=== PATIENT | male | born 1980 | race Caucasian/White ===

== ENCOUNTER 2021-10-16 11:38 | Emergency (ER) | payer OTHER, SELFPAY ==
[2021-10-16 12:16] VITALS: BP 168/102; PULSE 73; RESP 18; TEMP 36.8; O2SAT 99; BMI 28.9
--- NOTE | 2021-10-16 12:26 | ED_ITS ---
HPI - Male Genitourinary General Chief complaint: Urogenital-Male Stated complaint: Possible STD Time Seen by Provider: 10/16/21 12:13 Source: patient Mode of arrival: Ambulatory Limitations: no limitations History of Present Illness HPI Narrative: Otherwise healthy 41-year-old gentleman who presents with a week of increasing mild dysuria last night noticed increasing penile discharge and his most recent partner tested positive for chlamydia. He comes in for STD testing. He has complaining of mild lymphadenopathy inguinal a on the right side. He notes no vesicles, blisters, papules or other changes to his genitals. He notes that he had herpes outbreak about 6 months ago and has never had similar symptoms or infection. He reports that he was using condoms with the partner with whom the herpes became an issue. He and his current partner were not using condoms quite is consistently. He reports no fevers, abdominal pain, flank pain, palpitations, shortness of breath, headaches. Related Data Home Medications Medication Instructions Recorded Confirmed Fiber Gummies 6 g PO DAILY 04/07/18 04/25/18 magnesium 400 mg PO DAILY 04/07/18 04/25/18 Previous Rx's Medication Instructions Recorded doxycycline monohydrate 100 mg 100 mg PO BID #14 tab 10/16/21 tablet Allergies Allergy/AdvReac Type Severity Reaction Status Date / Time No Known Drug Allergies Allergy Verified 04/25/18 16:12 Review of Systems Review of Systems Narrative: Remainder of complete review of systems is otherwise unremarkable except for that included in the HPI. Patient History Social History household members: significant other Smoking Status: Never smoker Smoking Status: Never smoker alcohol intake frequency: 0-2 drinks per day Substance Use Type: does not use Exam Narrative Exam Narrative: General: Alert appropriate in no acute distress Respiratory: Able to speak in full sentences, no obvious respiratory distress Abdomen: No abdominal tenderness. Minor right inguinal adenopathy. No genital abnormalities Skin: No obvious rashes, warm and dry Neurologic: Grossly intact no obvious asymmetries or abnormalities Psych: appropriate insight and affect, cooperative Initial Vital Signs Initial Vital Signs: Vital Signs Temperature 98.3 F 10/16/21 12:16 Pulse Rate 73 10/16/21 12:16 Respiratory Rate 18 10/16/21 12:16 Blood Pressure 168/102 H 10/16/21 12:16 Pulse Oximetry 99 10/16/21 12:16 Course Orders Ordered: ED Orders 10/16/21 12:03 Chlamydia Gonorrhea PCR -URINE Stat Vital Signs Vital signs: Vital Signs - 8 hr 10/16/21 12:16 Temperature 98.3 F Pulse Rate 73 Respiratory Rate 18 Blood Pressure 168/102 H Pulse Oximetry 99 MDM - Male Genitourinary MDM Narrative Medical decision making narrative: 41-year-old gentleman with dysuria for a week, penile discharge for 12-24 hours and a partner with a positive chlamydia test. Urine is sent for gonorrhea and chlamydia testing. He is empirically treated with doxycycline 100 mg b.i.d. for 7 days. Will contact him if his chlamydia test returns positive. He declines additional testing at this time. Discharge Plan Departure Patient Disposition: Home Clinical Impression: Chlamydia infection Instructions: Chlamydia Activity Restrictions/Additional Instructions: Thank you for coming in today With your partner testing positive, we will empirically treat you for chlamydia with doxycycline 100 mg twice a day for 7 days. Your urine has been sent for both gonorrhea and chlamydia testing. If the gonorrhea returns positive as well we will contact you. I have given you a prescription for the antibiotic. [facility] is open today until 3:00 p.m.. I am not sure of the other pharmacies during the holiday. You have any worsening symptoms or new abnormalities please feel free to return to the ER. Prescriptions: New doxycycline monohydrate 100 mg tablet 100 mg PO BID Qty: 14 0RF No Action Fiber Gummies 6 g PO DAILY 0RF magnesium 400 mg PO DAILY 0RF Referrals: Jude Laguerre MD [Primary Care Provider] -
[2021-10-16 13:49] LABS: Urine N gonorrhoeae DETECTED
[2021-10-16 13:57] LABS: Urine Chlamydia NOT DETECTED
== END 2021-10-16 12:48 | disposition home or self-care (01) ==
PROVIDERS: Emergency Provider Emergency Medicine; PCP Family Medicine
DX: A56.2 Chlamydial infection of genitourinary tract, unspecified (principal)
CPT/HCPCS: 87491; 87591; 99281; 99283

== ENCOUNTER 2023-10-19 09:55 | Emergency (ER) | payer OTHER, SELFPAY ==
[2023-10-19] VITALS (8 sets, daily range): BP systolic 148–170; BP diastolic 95–108; PULSE 87–103; RESP 15–22; TEMP 36.6; O2SAT 97–98; BMI 29.5
--- NOTE | 2023-10-19 10:03 | DI.RAD.S_ITS ---
PROCEDURE: XR CHEST 1V INDICATIONS: chest pain TECHNIQUE: One view of the chest was acquired. COMPARISON: None. FINDINGS: Surgical changes and devices: None. Lungs and pleura: Lungs are clear. No pleural effusions or pneumothorax. Mediastinum: Mediastinal contours appear normal. Heart size is normal. Bones and chest wall: No suspicious bony lesions. Overlying soft tissues appear unremarkable. IMPRESSION: No acute cardiopulmonary abnormality is seen. Dictated by: Alcon Morgan M.D. on 10/19/2023 at 9:17 Approved by: Alcon Morgan M.D. on 10/19/2023 at 9:19
[2023-10-19] MEDS: ASPIRIN 81 MG CHEW TAB 324 MG PO (10:06)
[2023-10-19 10:09] LABS: Add Manual Diff / Slide Review NO; Basophils Absolute Auto 100 /uL (0-100); Basophils Percent Auto 0.5 % (0-2); Eosinophils Absolute Auto 100 /uL (0-450); Eosinophils Percent Auto 0.9 % (2-4); Hematocrit 42.6 % (41-53); Hemoglobin 14.1 g/dL (13.5-17.5); Lymphocytes Absolute Auto 1900 /uL (1100-4500); Lymphocytes Percent Auto 11.9 % (25-40); Mean Corpuscular HGB Conc 33.1 % (30-36); Mean Corpuscular Hemoglobin 29.5 PG (26-34); Monocytes Absolute Auto 1900 /uL (0-900); Monocytes Percent Auto 11.9 % (3-14); Neutrophils Absolute Auto 11800 /uL (1500-7000); Neutrophils Percent Auto 74.8 % (50-75); Platelet Count 334 X10^3/uL (150-400); Red Blood Cell Count 4.79 X10^6/uL (4.5-5.9); White Blood Cell Count 15.8 X10^3/uL (4.5-11.0)
[2023-10-19 10:21] LABS: Alanine Aminotransferase 36 IU/L (<50); Albumin 4.7 g/dL (3.5-5.0); Alkaline Phosphatase 109 U/L (38-126); Aspartate Aminotransferase 31 IU/L (17-59); BUN Creatinine Ratio 13.3 (6-22); Bilirubin Total 0.8 mg/dL (0.2-1.3); Blood Urea Nitrogen 13 mg/dL (9-20); Calcium 10.4 mg/dL (8.4-10.2); Carbon Dioxide 29 mmol/L (22-32); Chloride 101 mmol/L (98-107); Creatine Kinase 37 U/L (55-170); Estimated Glomerular Filt Rate > 60 mL/min (>60); Globulin 4.5 g/dL (1.7-4.1); Glucose 113 mg/dL (70-100); HEMOLYSIS < 15 (0-50); Lipase 50 U/L (23-300); Potassium 4.6 mmol/L (3.4-5.1); Sodium 138 mmol/L (137-145); Total Protein 9.2 g/dL (6.3-8.2)
--- NOTE | 2023-10-19 10:21 | ED.CHESTPAIN ---
HPI - Chest Pain General Chief Complaint: Chest Pain Stated Complaint: chest pain, difficulty breathing Time Seen by Provider: 10/19/23 09:59 Source: patient Mode of arrival: Ambulatory Limitations: no limitations History of Present Illness HPI narrative: 43-year-old male presents for 3 days of central burning substernal chest pain into his back, worse when lying down. Pain began after eating meals and nothing seems to make it better. He states the only way he can feel comfortable enough to sleep is to sleep upright. Took aspirin and ibuprofen yesterday without significant change in pain. Denies family history of heart disease. States only medical history is anxiety. Related Data Home Medications Medication Instructions Recorded Confirmed Fiber Gummies 6 g PO DAILY fiber 04/07/18 04/25/18 magnesium 400 mg PO DAILY muscle care 04/07/18 04/25/18 Previous Rx's Medication Instructions Recorded doxycycline monohydrate 100 mg 100 mg PO BID #14 tabs 10/16/21 tablet Allergies Allergy/AdvReac Type Severity Reaction Status Date / Time No Known Drug Allergies Allergy Verified 10/19/23 10:03 Review of Systems Review of Systems Narrative: Negative except as noted above Patient History Social History household members: significant other Smoking Status: Never smoker Smoking Status: Never smoker alcohol intake frequency: 3 or more drinks per day Substance Use Type: does not use Exam Initial Vital Signs Initial Vital Signs: Vital Signs Temperature 97.9 F 10/19/23 09:56 Pulse Rate 103 H 10/19/23 09:56 Respiratory Rate 15 10/19/23 09:56 Blood Pressure 169/108 H 10/19/23 09:56 Pulse Oximetry 98 10/19/23 09:56 Oxygen Delivery Method Room Air 10/19/23 09:56 Const: Awake, alert, anxious Eyes: PERRL, EOMI, conjunctiva normal ENT: Atraumatic, dentition normal, mucous membranes moist Cardiac: regular rate, regular rhythm RESP: unlabored, clear bilaterally, no wheezing GI: Atraumatic, soft, nontender, nondistended, no rebound, no guarding MSK: Atraumatic, full range of motion, pulses equal Skin: Warm, Dry, intact, no rashes Neuro: AO x3, CN II-XII grossly intact, moves all extremities Psych: Anxious affect, mood normal, not suicidal, not homicidal Course Orders Ordered: ED Orders 10/19/23 10:00 Complete Blood Count AUTO DIFF Stat Comprehensive Metabolic Panel Stat D Dimer Stat Lipase Stat Magnesium Stat PTT Partial Thromboplastin Abdoulaye Stat Prothrombin Time INR Stat Troponin & CK Cardiac Panel Stat 10/19/23 10:03 XR chest 1V Stat EKG-12 Lead Stat 10/19/23 10:30 Urine Drug Screen, Rapid Stat 10/19/23 10:47 CT angio chest PE protocol Stat Discontinued Medications Al Hydrox/Mg Hydrox/Simethicone (Mag Hydrox/Alum/Simeth 30 Ml Udc) 30 ml PO NOW ONE Stop: 10/19/23 10:32 Last Admin: 10/19/23 10:40 Dose: 30 ml Documented By: MARYLU Aspirin (Aspirin 81 Mg Chew Tab) 324 mg PO NOW ONE Stop: 10/19/23 10:03 Last Admin: 10/19/23 10:06 Dose: 324 mg Documented By: MARYLU Ketorolac Tromethamine (Ketorolac 30 Mg/Ml Vial) 15 mg IV NOW ONE Stop: 10/19/23 11:52 Last Admin: 10/19/23 11:56 Dose: 15 mg Documented By: MARYLU Lidocaine HCl (Lidocaine Viscous 2% 15 Ml Solution) 15 ml PO NOW ONE Stop: 10/19/23 10:32 Last Admin: 10/19/23 10:40 Dose: 15 ml Documented By: MARYLU Vital Signs Vital signs: Vital Signs - 8 hr 10/19/23 09:56 10/19/23 10:07 10/19/23 10:30 Temperature 97.9 F Pulse Rate 103 H 103 H 103 H Respiratory Rate 15 22 22 Blood Pressure 169/108 H Pulse Oximetry 98 98 98 Oxygen Delivery Method Room Air 10/19/23 10:30 10/19/23 11:00 10/19/23 11:01 Temperature Pulse Rate Respiratory Rate Blood Pressure 170/106 H 159/95 H Pulse Oximetry 98 Oxygen Delivery Method 10/19/23 11:01 10/19/23 11:29 10/19/23 11:30 Temperature Pulse Rate 87 91 H Respiratory Rate Blood Pressure 148/96 H Pulse Oximetry 97 98 Oxygen Delivery Method 10/19/23 11:30 10/19/23 12:00 10/19/23 12:00 Temperature Pulse Rate 91 H 89 Respiratory Rate Blood Pressure 152/96 H Pulse Oximetry 97 98 Oxygen Delivery Method MDM - Chest Pain Differential Diagnosis Differential diagnosis: Likely atypical chest pain, costochondritis and chest pain Lab Data 10/19/23 10:00 10/19/23 10:00 Labs: Lab Results 10/19/23 10/19/23 Range/Units 10:00 10:30 WBC 15.8 H (4.5-11.0) X10^3/uL RBC 4.79 (4.5-5.9) X10^6/uL Hgb 14.1 (13.5-17.5) g/dL Hct 42.6 (41-53) % MCV 89.0 (80-100) fL MCH 29.5 (26-34) PG MCHC 33.1 (30-36) % RDW 14.0 (11.6-14.8) % Plt Count 334 (150-400) X10^3/uL Neut % (Auto) 74.8 (50-75) % Lymph % (Auto) 11.9 L (25-40) % [place] % (Auto) 11.9 (3-14) % Eos % (Auto) 0.9 L (2-4) % Baso % (Auto) 0.5 (0-2) % Neut # (Auto) 68503 H (0500-5862) /uL Lymph # (Auto) 1900 (8269-0124) /uL [place] # (Auto) 1900 H (0-900) /uL Eos # (Auto) 100 (0-450) /uL Baso # (Auto) 100 (0-100) /uL PT 12.0 (9.4-12.5) SECONDS INR 1.0 (0.9-1.3) APTT 29 (25.1-36.5) SECONDS D-Dimer 695 H (<500) ng/ml Sodium 138 (137-145) mmol/L Potassium 4.6 (3.4-5.1) mmol/L Chloride 101 (98-107) mmol/L Carbon Dioxide 29 (22-32) mmol/L BUN 13 (9-20) mg/dL Creatinine 0.98 (0.66-1.25) mg/dL Estimated GFR > 60 (>60) mL/min BUN/Creatinine Ratio 13.3 (6-22) Glucose 113 H (70-100) mg/dL Calcium 10.4 H (8.4-10.2) mg/dL Magnesium 2.0 (1.6-2.3) mg/dL Total Bilirubin 0.8 (0.2-1.3) mg/dL AST 31 (17-59) IU/L ALT 36 (<50) IU/L Alkaline Phosphatase 109 (38-126) U/L Total Creatine Kinase 37 L (55-170) U/L Troponin I 0.020 (0.01-0.034) ng/mL Total Protein 9.2 H (6.3-8.2) g/dL Albumin 4.7 (3.5-5.0) g/dL Globulin 4.5 H (1.7-4.1) g/dL Albumin/Globulin Ratio 1.0 (1.0-2.8) Lipase 50 (23-300) U/L U Opiates 300ng/mL cut Negative (Negative) Ur Oxycodone Screen Negative (Negative) Urine Methadone Screen Negative (Negative) Ur Barbiturates Screen Negative (Negative) U Tricyclic Antidepress Negative (Negative) Ur Phencyclidine Scrn Negative (Negative) Ur Amphetamines Screen Negative (Negative) U Methamphetamines Scrn Negative (Negative) Ur MDMA Scrn (Ecstasy) Negative (Negative) U Benzodiazepines Scrn Negative (Negative) Urine Cocaine Screen Negative (Negative) U Marijuana (THC) Screen Positive H (Negative) ECG Data Interpretation: Normal sinus rhythm, rate 99 beats per minute, normal axis, no STEMI. MDM Narrative Medical decision making narrative: Anxious appearing but nontoxic patient presenting for chest radiating to his back. Noted to be hypertensive in the emergency department. Due to her reported history is and symptoms we will order D-dimer. Laboratory work is reviewed, troponin is 0.02, anticipate with 3 days of symptoms troponin would be higher. D-dimer is elevated, we will order CT angio. Initial chest x-ray negative for acute findings. CT angio is negative for dissection or PE. Patient reassessed, sitting comfortably in ED bed and texting on his phone. Patient informed of all lab and imaging results. I do not know the exact cause of his symptoms, it could possibly be reflux related. There do seem to be diffuse ST elevations with MS depressions that could indicate pericarditis. There are no depressions to indicate acute ischemic disease on EKG. Patient counseled to decrease alcohol and acidic food intake, to take a daily antacid, and to take anti-inflammatories as needed for pain. I recommended cardiology follow up in a referral was provided. Patient states that he has scheduled primary care follow up in 1 week and will also speak with his primary care physician concerning his symptoms. ED return precautions discussed at bedside. Patient expressed understanding of the plan and is in agreement at this time. All questions answered at the time of discharge. Discharge Plan Departure Patient Disposition: Home Clinical Impression: Chest pain Instructions: DI for Atypical Chest Pain Activity Restrictions/Additional Instructions: Decrease your acidic food intake, alcohol intake, and start taking a daily antacid such as Pepcid. This can be found [id number] at pharmacies. Take ibuprofen and Tylenol as needed for pain. Follow up with Cardiology (referral in paperwork) Prescriptions: No Action Fiber Gummies 6 g PO DAILY magnesium 400 mg PO DAILY doxycycline monohydrate 100 mg tablet 100 mg PO BID Qty: 14 0RF Referrals: Juana Campos MD [Physician] - Jude Laguerre MD [Primary Care Provider] - Stand Alone Forms: Patient Portal/API
[2023-10-19 10:22] LABS: PTT Partial Thromboplastin Tim 29 SECONDS (25.1-36.5)
--- NOTE | 2023-10-19 10:25 | PC.NURSE ---
pt educated on importance of obtaining urine sample; pt states I need to drink water first, pt observed drinking water, given urinal and call light to alert staff when done. pt verbalized understanding.
[2023-10-19 10:35] LABS: D Dimer 695 ng/ml (<500)
[2023-10-19] MEDS: LIDOCAINE VISCOUS 2% 15 ML SOLUTION PO (10:40)
[2023-10-19] MEDS: MAG HYDROX/ALUM/SIMETH 30 ML UDC PO (10:40)
--- NOTE | 2023-10-19 10:47 | DI.CT.S_ITS ---
PROCEDURE: CT ANGIO CHEST PE PROTOCOL INDICATIONS: elevated dimer, chest pain, back pain TECHNIQUE: After the administration of intravenous contrast, 2 mm thick sections acquired from the pulmonary apices to the posterior costophrenic angles. 3-dimensional maximum intensity projection (MIP) coronal and sagittal reformats were then acquired through the thorax. For radiation dose reduction, the following was used: automated exposure control, adjustment of mA and/or kV according to patient size. COMPARISON: None. FINDINGS: Image quality: Excellent. Lungs and pleura: Bibasilar atelectasis. No acute air space opacities. No pleural effusions or pneumothorax. Central and peripheral airways are patent and normal in caliber. Mediastinum: Heart size is normal. No pericardial effusion. No mediastinal adenopathy by size criteria. Thoracic aorta and central pulmonary arteries are normal in size. Esophagus is normal in caliber. No hiatal hernia. Bones and chest wall: No suspicious bony lesions. No vertebral body compression fractures. No axillary or supraclavicular adenopathy by size criteria. Thyroid gland is normal. Abdomen: Limited visualization of the upper abdomen shows no acute abnormality. IMPRESSION: 1. No pulmonary embolism. 2. Normal CTA of the chest. Dictated by: Alcon Morgan M.D. on 10/19/2023 at 10:15 Approved by: Alcon Morgan M.D. on 10/19/2023 at 10:19
[2023-10-19 10:50] LABS: Ur Creatinine Normal (Normal); Ur Specific Gravity Normal (Normal); Urine pH Normal (Normal)
[2023-10-19 10:51] LABS: UR Morphine/Opiate cutoff 300 Negative (Negative); Urine Amphetamines Negative (Negative); Urine Barbiturates Negative (Negative); Urine Benzodiazepines Negative (Negative); Urine Cocaine Negative (Negative); Urine MDMA Negative (Negative); Urine Methadone Negative (Negative); Urine Methamphetamines Negative (Negative); Urine Oxycodone Negative (Negative); Urine Phencyclidine Negative (Negative); Urine Tetrahydrocannabinol Positive (Negative); Urine Tricyclic Antidepressant Negative (Negative)
[2023-10-19] MEDS: KETOROLAC 30 MG/ML VIAL 15 MG IV (11:56)
== END 2023-10-19 12:14 | disposition home or self-care (01) ==
PROVIDERS: Emergency Provider Emergency Medicine; PCP Family Medicine
DX: R07.9 Chest pain, unspecified (principal)
CPT/HCPCS: 36415; 71045; 71275; 80053; 80305; 82550; 83690; 83735; 84484; 85025; 85379; 85610; 85730; 93005; 96374; 99284; J1885; Q9967